=== PATIENT | male | born 1970 | race Caucasian/White ===

== ENCOUNTER 2022-04-01 02:06 | Emergency (ER) | payer BC ==
[2022-04-01 03:55] LABS: ANION GAP 15.8 mEq/L (7-13); CHLORIDE,CL 104 mmol/L (98-107); SODIUM,NA 140 mmol/L (136-145)
[2022-04-01 04:00] LABS: ESTIMATED GFR 82 mL/min (>=60)
== END 2022-04-01 04:37 | disposition home or self-care (01) ==
LOC: DL.ED 02:06
DX: U07.1 COVID-19 (principal); R07.9 Chest pain, unspecified; F41.9 Anxiety disorder, unspecified; I10 Essential (primary) hypertension; Z79.899 Other long term (current) drug therapy
CPT/HCPCS: 36415; 71045; 80053; 82150; 83605; 83690; 84484; 85025; 85379; 86140; 93005; 93010; 99283; 99285; U0002

== ENCOUNTER 2022-08-24 10:07 | Emergency (ER) | payer BC ==
[2022-08-24] MEDS ORDERED: Sodium Chloride 0.9% 10 ML Syringe FLUSH PRN (10:30)
[2022-08-24] MEDS ORDERED: Ondansetron 4 MG/2 ML SDV IVPUSH ONE (10:32)
[2022-08-24] MEDS ORDERED: Sodium Chloride 0.9% 1,000 ML IV ONE ×2 (10:32→12:45)
[2022-08-24 11:06] LABS: ANION GAP 17.6 mEq/L (7-13)
[2022-08-24 11:46] LABS: CORONAVIRUS COVID-19 NAA NEGATIVE (NEGATIVE)
[2022-08-24] MEDS ORDERED: Iopamidol 755 Mg/ML 100 ML Bottle IVPUSH ONE (12:09)
== END 2022-08-24 15:19 | disposition home or self-care (01) ==
LOC: DL.ED 10:07
DX: H81.10 Benign paroxysmal vertigo, unspecified ear (principal); I10 Essential (primary) hypertension; Z88.5 Allergy status to narcotic agent; Z79.899 Other long term (current) drug therapy; Z20.822 Contact with and (suspected) exposure to COVID-19
CPT/HCPCS: 0240U; 36415; 70450; 70496; 70498; 80053; 83735; 85025; 86140; 93005; 96361; 96374; 99284; J2405; J3490; J7030; Q9967

== ENCOUNTER 2025-01-15 16:24 | Emergency (ER) | payer BC ==
[2025-01-15 17:06] LABS: BASOPHILS PERCENT AUTO 0.3 % (0.0-1.0); EOSINOPHILS PERCENT AUTO 1.6 % (1.0-3.0); HEMATOCRIT 38.8 % (40.0-54.0); HEMOGLOBIN 12.6 g/dL (14.0-18.0); LYMPHOCYTES PERCENT AUTO 25.9 % (20.5-50.1); MEAN CORPUSCULAR HEMOGLOBIN 29.4 pg (27.0-34.0); MEAN CORPUSCULAR HGB CONC 32.5 g/dL (33.0-35.0); MEAN CORPUSCULAR VOLUME 90.4 fL (80-100); NEUTROPHILS PERCENT AUTO 62.2 % (42.2-75.2); PLATELET COUNT,PLT 204 10^3/uL (150-450); RED BLOOD CELL COUNT 4.29 10^6/uL (4.6-6.2); WHITE BLOOD CELL COUNT,WBC 6.8 10^3/uL (5.0-10.0)
[2025-01-15 17:27] LABS: INR 1.1 (0.9-1.2); PROTHROMBIN TIME 11.9 SEC (9.0-12.0)
[2025-01-15 17:28] LABS: ANION GAP 16.2 mEq/L (7-13); CALCIUM 9.7 mg/dL (8.5-10.1); CREATININE 1.16 mg/dL (0.70-1.30); EST CRCL DRUG DOSING (CG) 82.27 mL/min; POTASSIUM,K 4.2 mmol/L (3.5-5.1)
== END 2025-01-15 18:01 | disposition home or self-care (01) ==
LOC: DL.ED 16:24
DX: R06.02 Shortness of breath (principal); I10 Essential (primary) hypertension; Z86.16 Personal history of COVID-19; Z79.899 Other long term (current) drug therapy; Z88.8 Allergy status to other drugs, medicaments and biological substances
CPT/HCPCS: 36415; 71045; 80048; 84484; 85025; 85610; 93005; 93010; 99284; 99285